=== PATIENT | male | born 1985 | race Hispanic/Latino ===

== ENCOUNTER 2022-04-11 06:33 | Emergency (ER) | payer OTHER ==
[~2022-04-11] VITALS: Ht 162.6 cm; Wt 63.5 kg
[2022-04-11] MEDS ORDERED: OCTYL 2-CYANOACRYLATE 1 EACH TP ONE (08:00)
[2022-04-11 08:34] VITALS: BP 126/86
== END 2022-04-11 08:35 | disposition home or self-care (01) ==
LOC: EDH 06:33
DX: S01.81XA Laceration without foreign body of other part of head, initial encounter (principal); Y08.89XA Assault by other specified means, initial encounter; Y93.89 Activity, other specified; Y92.89 Other specified places as the place of occurrence of the external cause; Y99.8 Other external cause status
CPT/HCPCS: 12013